=== PATIENT | male | born 1995 | race Caucasian/White ===

== ENCOUNTER 2017-04-22 10:52 | Emergency (ER) | payer OTHER ==
[~2017-04-22] VITALS: Ht 175.3 cm; Wt 85.0 kg
[~2017-04-22 10:52] MED LIST: ACET500C5 PO; FAMO-96 PO
[2017-04-22 10:53] VITALS: Ht 175.3 cm; Wt 85.0 kg
[2017-04-22] MEDS ORDERED: LIDOCAINE 1% (MDV) 20 ML INJ SC ONE (11:30)
[2017-04-22] MEDS ORDERED: IBUPROFEN 600 MG TAB PO ONE (11:30)
[2017-04-22] MEDS ORDERED: IBUP-1542 PO (12:28)
[2017-04-22] MEDS ORDERED: DOXY100T20 PO (12:28)
[2017-04-22] MEDS ORDERED: ACET1TAB40 PO (12:28)
--- NOTE | 2017-04-22 12:31 | ERD ---
ER Documentation Chief Complaint Date/Time DATE: 04/22/17 TIME: 12:29 Chief Complaint abscess on back x 4 days HPI 21-year-old male complains of redness and pain and a lump on the upper part of his back. Denies any history of trauma, fevers, discharge or bleeding. ROS All systems reviewed and are negative except as per history of present illness. Medications Home Meds Active Scripts Acetaminophen with Codeine (Acetaminophen-Cod #3 Tablet) 1 Each Tablet, 1 TAB PO Q6H Y for PAIN, #7 TAB Prov:LAKEISHA BAILEY MD 04/22/17 Ibuprofen* (Motrin*) 600 Mg Tab, 600 MG PO Q6, #20 TAB Prov:LAKEISHA BAILEY MD 04/22/17 Doxycycline Hyclate* (Doxycycline Hyclate*) 100 Mg Tablet.dr, 100 MG PO BID for 10 Days, TAB Prov:LAKEISHA BAILEY MD 04/22/17 Acetaminophen* (Tylophen*) 500 Mg Capsule, 1 CAP PO Q6H Y for PAIN AND OR ELEVATED TEMP, #20 CAP Prov:LAKEISHA BAILEY MD 04/21/16 Famotidine* (Pepcid*) 20 Mg Tablet, 20 MG PO BID for 14 Days, #30 TAB Prov:LAKEISHA BAILEY MD 04/21/16 Allergies Allergies: Coded Allergies: No Known Allergy (Unverified , 04/22/17) PMhx/Soc Medical and Surgical Hx: pt denies Medical Hx, pt denies Surgical Hx Hx Alcohol Use: No Hx Substance Use: No Hx Tobacco Use: No Smoking Status: Never smoker Physical Exam Vitals Vital Signs Date Time Temp Pulse Resp B/P Pulse Ox O2 Delivery O2 Flow Rate FiO2 04/22/17 10:53 98.1 80 18 130/78 98 Physical Exam Const: [] There are, [id number]. Head: Atraumatic Eyes: Normal Conjunctiva ENT: Normal External Ears, Nose and Mouth. Neck: Full range of motion..~ No meningismus. Resp: Clear to auscultation bilaterally Cardio: Regular rate and rhythm, no murmurs Abd: Soft, non tender, non distended. Normal bowel sounds Skin: No petechiae or rashes. On the upper back there is approximately 2 cm area of fluctuance and redness and irritation Back: No midline or flank tenderness Ext: No cyanosis, or edema Neur: Awake and alert Psych: Normal Mood and Affect Results 24 hrs Current Medications Medications (Trade) Dose Ordered Sig/[place] Route PRN Reason Start Time Stop Time Status Last Admin Dose Admin Ibuprofen (Motrin) 600 mg ONCE ONCE PO 04/22/17 11:30 04/22/17 11:31 DC Lidocaine (Xylocaine 1% (Mdv) 20 ml) 20 ml ONCE ONCE SC 04/22/17 11:30 04/22/17 11:31 DC Procedures/MDM Patient presents with signs and symptoms of likely an infected sebaceous cyst on the upper back. Procedure note-the upper back was prepped with Betadine. 4 cc of lidocaine was used for local infiltration. #11 scalpel was used to incise the wound. Infected sebaceous material was expressed. Using clamps and scalpel portion of the sac was removed. The wound was packed with approximately 8 cm of quarter- inch gauze and patient tolerated procedure well and a compression dressing was applied. Patient was discharged home the prescription of doxycycline and Tylenol No. 3 and wound care. He should recheck in 2-3 days for gauze removal, otherwise sooner for worsening redness, fevers, new worsening symptoms. The patient was stable with no new complaints during the ER course. Clinically, there is no current evidence to suggest meningitis, sepsis, acute abdomen, pneumonia, acute coronary syndrome, pulmonary embolism, or any other emergent condition appearing to require further evaluation or hospitalization. The patient should certainly return for any new or worsening symptoms per the aftercare instructions. They should otherwise follow-up with her primary care doctor for reevaluation this week. Disclaimer: Inadvertent spelling and grammatical errors are likely due to EHR/ dictation software use and do not reflect on the overall quality of patient care. Also, please note that the electronic time recorded on this note does not necessarily reflect the actual time of the patient encounter. Departure Diagnosis: Primary Impression: Sebaceous cyst Condition: Stable Patient Instructions: Sebaceous Cyst, Infected (I And D) Additional Instructions: Recheck in 3 days for gauze removal. Recheck otherwise sooner for fevers, redness, new worsening symptoms LAKEISHA BAILEY MD Apr 22, 2017 12:31
== END 2017-04-22 12:51 | disposition home or self-care (01) ==
LOC: FTE 10:52
DX: L72.3 Sebaceous cyst (principal)
CPT/HCPCS: 10061; Z7502

== ENCOUNTER 2017-04-25 13:27 | Emergency (ER) | payer OTHER ==
[~2017-04-25] VITALS: Ht 172.7 cm; Wt 86.0 kg
[~2017-04-25 13:27] MED LIST changes: +ACET1TAB40 PO; +DOXY100T20 PO; +IBUP-1542 PO
[2017-04-25 13:36] VITALS: Ht 172.7 cm; Wt 86.0 kg
--- NOTE | 2017-04-25 15:34 | ERD ---
ER Documentation Chief Complaint Date/Time DATE: 04/25/17 TIME: 15:31 Chief Complaint WOUND CHECK ABSCESS HPI This is a 21-year-old male who presents to the emergency department today for a wound check of an abscess that he had drained a couple of days ago. Patient states he is taking his antibiotics. Denies any fevers or chills. ROS All systems reviewed and are negative except as per history of present illness. Medications Home Meds Active Scripts Acetaminophen with Codeine (Acetaminophen-Cod #3 Tablet) 1 Each Tablet, 1 TAB PO Q6H Y for PAIN, #7 TAB Prov:LAKEISHA BAILEY MD 04/22/17 Ibuprofen* (Motrin*) 600 Mg Tab, 600 MG PO Q6, #20 TAB Prov:LAKEISHA BAILEY MD 04/22/17 Doxycycline Hyclate* (Doxycycline Hyclate*) 100 Mg Tablet.dr, 100 MG PO BID for 10 Days, TAB Prov:LAKEISHA BAILEY MD 04/22/17 Acetaminophen* (Tylophen*) 500 Mg Capsule, 1 CAP PO Q6H Y for PAIN AND OR ELEVATED TEMP, #20 CAP Prov:LAKEISHA BAILEY MD 04/21/16 Famotidine* (Pepcid*) 20 Mg Tablet, 20 MG PO BID for 14 Days, #30 TAB Prov:LAKEISHA BAILEY MD 04/21/16 Allergies Allergies: Coded Allergies: No Known Allergy (Unverified , 04/22/17) PMhx/Soc Medical and Surgical Hx: pt denies Medical Hx, pt denies Surgical Hx Hx Alcohol Use: No Hx Substance Use: No Hx Tobacco Use: No Smoking Status: Never smoker Physical Exam Vitals Vital Signs Date Time Temp Pulse Resp B/P Pulse Ox O2 Delivery O2 Flow Rate FiO2 04/25/17 13:36 98.5 63 18 137/78 98 Physical Exam Const: No acute distress Head: Atraumatic Eyes: Normal Conjunctiva ENT: Normal External Ears, Nose and Mouth. Neck: Full range of motion..~ No meningismus. Resp: Clear to auscultation bilaterally Cardio: Regular rate and rhythm, no murmurs Skin: Evidence of abscess and packing in place. No erythema or warmth. No purulent drainage Neur: Awake and alert Psych: Normal Mood and Affect Procedures/MDM This is a 21-year-old male presents the emergency department today for a wound check an abscess that he had drained a couple of days ago. Upon review of patient's medical records patient was seen here couple of days ago and had a sebaceous cyst drained by incision and drainage. Patient is afebrile and otherwise well-appearing. He has no complaints. There is no erythema or warmth. I did remove the wound packing. There is no purulent drainage. Low suspicion for sepsis, cellulitis or deep space infection. Patient was instructed to continue taking his antibiotics as prescribed. I have instructed him to keep the wound dry for another couple of days as I replaced the gauze and Tegaderm over it. I did not replace the packing. At this time the patient is stable for discharge and outpatient management. Patient should follow up with their PCP in the next 1-2 days. They may return to the emergency department sooner for any persistent or worsening of symptoms. Patient understood and agreed with the plan. Departure Diagnosis: Primary Impression: Encounter for wound re-check Condition: Fair Patient Instructions: Wound Care Referrals: your PCP Additional Instructions: Call your primary care doctor TOMORROW for an appointment during the next 1-2 days.See the doctor sooner or return here if your condition worsens before your appointment time. Keep wound dry for 2 more days than okay to remove dressing Continue taking her antibiotics as prescribed AMANDA CUEVAS PA-C Apr 25, 2017 15:33
== END 2017-04-25 15:25 | disposition home or self-care (01) ==
LOC: FTE 13:27
DX: Z48.01 Encounter for change or removal of surgical wound dressing (principal)
CPT/HCPCS: 99281